=== PATIENT | male | born 1965 | race Caucasian/White ===

== ENCOUNTER → 2018-06-05 | Outpatient (REF) ==
[~2018-06-05] MED LIST: CELEXA40 MG PO; NORCO 325 MG-51 TAB PO; NORVASC 10MG10 MG PO
== END ==
LOC: ZLAB.WCH 15:58
DX: Z01.89 Encounter for other specified special examinations (principal)
CPT/HCPCS: G0103

== ENCOUNTER 2019-06-15 08:17 | Emergency (ER) | payer BC ==
[~2019-06-15] VITALS: Ht 180.3 cm; Wt 81.8 kg
[2019-06-15 08:21] VITALS: TEMP 98.2
[2019-06-15 08:48] LABS: ALANINE AMINOTRANSFERASE 28 U/L (21-72); ALBUMIN 4.7 gm/dL (3.5-5.0); ALKALINE PHOSPHATASE 97 U/L (50-136); ANION GAP 10 mmol/L (7-16); AST,SGOT 35 U/L (15-37); BASO # 0.1 (0.0-0.2); BILIRUBIN,TOTAL 0.3 mg/dL (0.0-1.0); BLOOD UREA NITROGEN 17 mg/dL (9-20); CALCIUM 9.9 mg/dL (8.4-10.2); CARBON DIOXIDE 20 mmol/L (22-30); CHLORIDE 111 mmol/L (98-107); CREATININE, serum 0.72 (0.66-1.25); EOS # 0.1 (0.0-0.7); EOS % 1.1 % (0-4.0); GLUCOSE 103 mg/dL (74-106); GRAN # 5.3 (1.4-6.5); GRAN % 58.6 % (42.2-75.2); HEMATOCRIT 45.9 % (42.0-52.0); HEMOGLOBIN 15.5 g/dl (13.5-18.0); LYMPH # 2.7 (1.2-3.4); LYMPH % 30.2 % (20.0-51.0); MEAN CELL VOLUME 94 fl (80.0-100.0); MEAN CORPUSCULAR HEMOGLOBIN 32 pg (27.0-31.0); MEAN CORPUSCULAR HGB CONC 34 g/dl (33.0-37.0); MEAN PLATELET VOLUME 9.6 fl (7.4-10.4); MONO # 0.8 (0.1-0.6); MONO % 8.3 % (1.7-9.3); PLATELET COUNT 268 K/mm3 (130-400); POTASSIUM 4.3 mmol/L (3.4-5.0); RED BLOOD COUNT 4.87 M/mm3 (4.20-5.60); REDCELL DISTRIBUTION WIDTH-CV 13.5 % (11.5-14.5); SODIUM 141 mmol/L (137-145); TOTAL PROTEIN 8.2 gm/dL (6.4-8.2)
[2019-06-15 08:51] LABS: INR 0.9 (0.8-3.0)
[2019-06-15 08:53] LABS: PARTIAL THROMBOPLASTIN TIME 32.9 SECONDS (26.0-37.0)
[2019-06-15 09:03] LABS: TROPONIN-I < 0.012 ng/mL (0.000-0.035)
[2019-06-15 12:35] VITALS: BP 143/89; PULSE 81
== END 2019-06-15 12:35 | disposition short-term general hospital (02) ==
LOC: COL.ER 08:17
PROVIDERS: Emergency Medicine
DX: G45.9 Transient cerebral ischemic attack, unspecified (principal); I10 Essential (primary) hypertension; F17.210 Nicotine dependence, cigarettes, uncomplicated
CPT/HCPCS: Q9967

== ENCOUNTER → 2019-12-21 | Outpatient (REF) | LOC: COL.CARD 11:53 | DX: Z01.810 Encounter for preprocedural cardiovascular examination (principal) ==

== ENCOUNTER 2022-03-26 07:28 | Day surgery (SDC) | payer BC ==
[2022-03-26] VITALS (118 sets, daily range): BP systolic 106–150; BP diastolic 75–92; PULSE 64–80; TEMP 98.7; O2SAT 91–97
[~2022-03-26] VITALS: Ht 175.3 cm; Wt 75.1 kg
[~2022-03-26 07:28] MED LIST changes: -NORVASC 10MG10 MG PO; +NORVASC 5MG5 MG/TAB PO
[2022-03-26 08:21] LABS: HEMATOCRIT 43.9 % (42.0-52.0); HEMOGLOBIN 14.6 g/dl (13.5-18.0); MEAN CELL VOLUME 96 fl (80.0-100.0); MEAN CORPUSCULAR HEMOGLOBIN 32 pg (27-31); MEAN CORPUSCULAR HGB CONC 33 g/dl (33.0-37.0); MEAN PLATELET VOLUME 9.2 fl (7.4-10.4); PLATELET COUNT 219 K/mm3 (130-400); RED BLOOD COUNT 4.58 M/mm3 (4.20-5.60)
[2022-03-26 08:28] LABS: PROTHROMBIN TIME 11.4 SECONDS (9.7-12.8)
[2022-03-26 08:31] LABS: PARTIAL THROMBOPLASTIN TIME 36.9 SECONDS (26.0-37.0)
[2022-03-26 08:36] LABS: CALCIUM 9.3 mg/dL (8.4-10.2); CREATININE, serum 0.83 mg/dL (0.72-1.25); POTASSIUM 4.3 mmol/L (3.5-4.5)
[2022-03-26] MEDS ORDERED: TOPROL XL 50MG50 MG PO (09:02)
[2022-03-26] MEDS ORDERED: LIPITOR 80MG80 MG PO (09:03)
[2022-03-26] MEDS ORDERED: PROAIR HFA0.09 MG/AC IH (09:03)
[2022-03-26] MEDS ORDERED: WELLBUTRIN SR150 M1 PO (09:04)
--- NOTE | 2022-03-26 10:10 | NUR ---
SEE MERGE FOR ALL MEDICATION ADMINISTRATION TIMES, INTRA AND POST SEDATION ASSESSMENTS
--- NOTE | 2022-03-26 10:40 | NUR ---
Report from Cheikh Santiago.Will await pt's arrival.
--- NOTE | 2022-03-26 13:15 | NUR ---
All air removed from band in 2-3 ml incriments.No bleeding observed at site.Right radial wrist wrapped in gauze and coban.
--- NOTE | 2022-03-26 13:23 | NUR ---
Discharge instructions given to pt.pt verbalizes understanding.Pt escorted out via wheelchair by is nurse.
== END 2022-03-26 13:27 ==
LOC: COL.CAR 07:28
PROVIDERS: Internal Medicine Cardiovascular Disease
DX: R07.89 Other chest pain (principal); R94.39 Abnormal result of other cardiovascular function study; I10 Essential (primary) hypertension; F17.210 Nicotine dependence, cigarettes, uncomplicated
CPT/HCPCS: C1769; J1644; J2250; J3010